=== PATIENT | male | born 1980 | race Caucasian/White ===

== ENCOUNTER 2018-05-27 07:12 | Day surgery (SDC) | payer BC ==
[2018-05-27] MEDS ORDERED: Ondansetron 4 MG/2 ML SDV IVPUSH ONE (07:13)
[2018-05-27] MEDS ORDERED: Lactated Ringers 1,000 ML IV ONE (07:13)
[2018-05-27] MEDS ORDERED: Propofol 200 MG/20 ML SDV IV ONE (07:13)
[2018-05-27] MEDS ORDERED: fentaNYL 100 MCG/2 ML SDV IV ONE (07:13)
[2018-05-27] MEDS ORDERED: Dexamethasone 4 MG/ML 5 ML MDV IVPUSH ONE (07:13)
[2018-05-27] MEDS ORDERED: Midazolam 1 MG/ML 2 ML SDV IV ONE (07:13)
[2018-05-27] MEDS ORDERED: Ketorolac 30 MG/ML SDV IVPUSH ONE (07:13)
[2018-05-27] MEDS ORDERED: Lidocaine 2% 100 MG/5 ML Syringe IVPUSH ONE (07:13)
[2018-05-27] MEDS ORDERED: Sodium Chloride 0.9% 10 ML Syringe FLUSH PRN (07:15)
[2018-05-27] MEDS ORDERED: Lactated Ringers 1,000 ML IV SCH (07:15)
[2018-05-27] MEDS ORDERED: Sodium Chloride 0.9% 1,000 ML IV SCH (07:57)
[2018-05-27] MEDS ORDERED: Piperacillin/Tazobactam 3.375 GM in Sodium Chloride 0.9% 50 ML IV SCH (08:00)
[2018-05-27] MEDS ORDERED: Lidocaine 1% 20 ML MDV ONE (09:05)
[2018-05-27] MEDS ORDERED: Bupivacaine 0.5% 30 ML SDV ONE (09:05)
--- NOTE | 2018-05-27 09:52 | PCM.OPNOTE ---
- General Post-Op/Procedure Note Date of Surgery/Procedure: 05/27/18 Operative Procedure(s): Right great toe amputation Findings: proximal phalange and ulcer of distal toe Pre Op Diagnosis: diabetic foot ulcer right great toe with osteomylitis Post-Op Diagnosis: Same Anesthesia Technique: General LMA, Local (7 ml 1 % lido and 0.5% buvipicaine) Primary Surgeon: Parth Fracno Anesthesia Provider: Sid Mcnulty Pathology: right great toe EBL in mLs: 3 Complications: None Condition: Good Free Text/Narrative:: see dictation
[2018-05-27] MEDS ORDERED: Acetaminophen/HYDROcodone 325-5 MG Tab PO ONE (09:59)
[2018-05-27 11:04] VITALS: BP 104/80
--- NOTE | 2018-05-27 11:19 | OR ---
DATE OF OPERATION: 05/27/2018 SURGEON: Parth Franco MD PROCEDURE PERFORMED: Amputation of the right great toe. PREOPERATIVE DIAGNOSIS: Osteomyelitis with chronic ulcer in a diabetic. POSTOPERATIVE DIAGNOSIS: Osteomyelitis with chronic ulcer in a diabetic. INDICATIONS FOR PROCEDURE: This is a 38-year-old white male who has had an amputation performed of his distal toe in the past due to an ulcer that developed because of his diabetes and chronic osteomyelitis. Recently, he has had an another ulcer developed at the tip of his amputation stump on his great toe. Subsequent workup has demonstrated osteomyelitis. He was offered and accepted amputation. DESCRIPTION OF OPERATION: After an excellent LMA anesthetic was administered, the patient was prepped and draped in usual sterile manner. 7 mL of 1:1 mixture of 1% lidocaine and 0.5% bupivacaine was used to perform a digital block. A racket incision was then performed with a #15 scalpel blade and tissue was cut down to bone. The tendons were transected and tension was placed on the tendon which was then pulled. This was then transected to allow the tendon to retract back into the area of the foot. The periosteal elevator was then used to elevate the periosteum and enter the intra-articular joint between the flange and the metatarsal. After transecting the joint capsule, the toe was then removed and passed off the field. The exposed cartilage was then roughed up with a rongeur. The area was irrigated. The subcu tissue was then approximated with interrupted 0 Vicryl and a combination of 2-0 nylon and 3-0 nylon was used to close the skin. Dressing was applied. The patient tolerated the procedure well and was taken to recovery in good condition. /[id number] /MODL
== END 2018-05-27 11:17 | disposition home or self-care (01) ==
LOC: FB.SDS 07:12
PROVIDERS: ATTEND Surgery
DX: M86.671 Other chronic osteomyelitis, right ankle and foot (principal); E11.621 Type 2 diabetes mellitus with foot ulcer; E66.01 Morbid (severe) obesity due to excess calories; Z79.4 Long term (current) use of insulin; Z88.1 Allergy status to other antibiotic agents; Z79.82 Long term (current) use of aspirin; Z68.41 Body mass index [BMI] 40.0-44.9, adult; Z79.899 Other long term (current) drug therapy; Z79.52 Long term (current) use of systemic steroids
CPT/HCPCS: 28810; 82962; A9270; J1100; J1885; J2001; J2250; J2405; J2543; J2704; J3010; J3490; J7030; J7050; J7120

== ENCOUNTER 2019-01-07 21:39 | Emergency (ER) | payer SELFPAY ==
[2019-01-07] MEDS ORDERED: Lidocaine 1% with EPINEPHrine 1:100,000 10 ML MDV INJECT ONE (21:40)
[2019-01-07] MEDS: Diphtheria,Pertussis(Acell),Tetanus Vaccine 0.5 ML SDV IM ONE (22:52)
[2019-01-07] MEDS: Doxycycline 100 MG Tab PO ONE (22:52)
--- NOTE | 2019-01-07 23:04 | EDM.PDOC ---
ED HPI GENERAL MEDICAL PROBLEM - General Chief Complaint: Lower Extremity Injury/Pain Stated Complaint: TOE Time Seen by Provider: 01/07/19 21:57 Source of Information: Reports: Patient History Limitations: Reports: No Limitations - History of Present Illness INITIAL COMMENTS - FREE TEXT/NARRATIVE: states he got up and put the right foot down and felt sudden pain in the right toe: at the base of the 2nd toe ( 1st toe is amputated). Then noted sudden onset of bleeding from the affected area at the base of the toe . then decide to come in to be seen Onset: Today Onset Date: 01/07/19 Onset Time: 19:30 Duration: Constant Location: Reports: Lower Extremity, Right Quality: Reports: Ache Severity: Mild Improves with: Reports: Rest Worsens with: Reports: Movement Context: Reports: Activity R foot Pain Score (Numeric/FACES): 8 - Related Data Allergies Allergy/AdvReac Type Severity Reaction Status Date / Time sulfamethoxazole Allergy Rash Verified 01/07/19 21:50 [From Bactrim] trimethoprim [From Bactrim] Allergy Rash Verified 01/07/19 21:50 Home Meds: Home Meds Doxycycline Hyclate 100 mg PO BID #20 capsule 01/07/19 [Rx] Mupirocin Cream [Bactroban Crm] 30 gm .XX BID #3 tube 01/07/19 [Rx] Past Medical History - Past Health History Medical/Surgical History: Denies Medical/Surgical History HEENT History: Reports: Impaired Vision, Other (See Below) Other HEENT History: wears glasses Cardiovascular History: Reports: High Cholesterol Respiratory History: Reports: None Gastrointestinal History: Reports: Colon Polyp Genitourinary History: Reports: Other (See Below) Other Genitourinary History: PENILE LESION Musculoskeletal History: Reports: Fracture Other Musculoskeletal History: hx fx L 4 & 5th fingers Neurological History: Reports: Neuropathy, Diabetic Psychiatric History: Reports: Anxiety, Depression, Developmental Delay, Learning Disability Endocrine/Metabolic History: Reports: Diabetes, Type II, IDDM, Obesity/BMI 30+ Hematologic History: Reports: None Immunologic History: Reports: None Oncologic (Cancer) History: Reports: None - Infectious Disease History Infectious Disease History: Reports: Chicken Pox, MRSA Other Infectious Disease History: hx MRSA IN [place] - Past Surgical History Head Surgeries/Procedures: Reports: None HEENT Surgical History: Reports: Oral Surgery Cardiovascular Surgical History: Reports: None Respiratory Surgical History: Reports: None GI Surgical History: Reports: Appendectomy, Cholecystectomy, Colon, Colonoscopy , Hernia, Abdominal, Hernia, Inguinal, Polypectomy Male Surgical History: Reports: Vasectomy Endocrine Surgical History: Reports: None Neurological Surgical History: Reports: None Musculoskeletal Surgical History: Reports: Amputation, Other (See Below) Other Musculoskeletal Surgeries/Procedures:: RIGHT GREAT TOE PARTIAL AMPUTATION Oncologic Surgical History: Reports: None Social & Family History - Family History Family Medical History: Noncontributory Cardiac: Reports: High Cholesterol, Hypertension, [place], Prior Cardiac Arrest : Reports: Diabetic Nephropathy OBGYN: Reports: Recurrent Spontaneous Musculoskeletal: Reports: Gout Psychiatric: Reports: None Endocrine/Metabolic: Reports: Diabetes, Type I, Obesity/MBI 30+ Hematologic: Reports: None Immunologic: Reports: None Dermatologic: Reports: None Oncologic: Reports: None - Tobacco Use Smoking Status *Q: Former Smoker Years of Tobacco use: 25 Used Tobacco, but Quit: Yes Month/Year Tobacco Last Used: 2016 - Caffeine Use Caffeine Use: Reports: Coffee, Energy Drinks - Recreational Drug Use Recreational Drug Use: No Review of Systems - Review of Systems Review Of Systems: See Below Constitutional: Reports: No Symptoms Eyes: Reports: No Symptoms Ears: Reports: No Symptoms Nose: Reports: No Symptoms Mouth/Throat: Reports: No Symptoms Skin: Reports: Wound (laceration : spontaneous on the base of toe with a bleed) Neurological: Reports: Paresthesia ED EXAM, GENERAL - Physical Exam Exam: See Below Free Text/Narrative:: exam od right foot:; 1st toe amputated. 2nd toe is a hammer toe, in the flexed part of the hammer toe is a deep laceration abut 2 cm long , bleeding Exam Limited By: No Limitations General Appearance: Alert, WD/WN, No Apparent Distress Eye Exam: Bilateral Eye: EOMI Ears: Normal External Exam Nose: Normal Inspection Head: Atraumatic Neck: Supple Peripheral Pulses: 0: Posterior Tibial (L), 1+: Dorsalis Pedis (L), Dorsalis Pedis (R) Extremities: Joint Swelling (2nd toe with linear laceration on the flexed distal phalanx) ED TRAUMA EXTREMITY PROCEDURES - Laceration/Wound Repair Right Toe - Second Lac/Wound Length In cm: 2 (plantar surface) Appearance: Superficial Distal NVT: Other (neuropathy) Anesthetic Type: Digital Local Anesthesia - Lidocaine (Xylocaine): 1% with EPI Local Anesthetic Volume: 2cc Skin Prep: Saline Saline Irrigation (cc's): 3 Exploration/Debridement/Repair: In a Bloodless Field Closed With: Sutures Suture Size: 4-0 # of Sutures: 5 Suture Type: Prolene, Interrupted Course - Vital Signs Last Recorded V/S: Last Vital Signs Temp 36.6 C 01/07/19 21:45 Pulse 86 01/07/19 21:45 Resp 18 01/07/19 21:45 BP 152/82 H 01/07/19 21:45 Pulse Ox 99 01/07/19 21:45 - Orders/Labs/Meds Orders: Active Orders 24 hr Category Date Time Status Vaccines to be Administered [RC] PER UNIT ROUTINE Care 01/07/19 22:47 Ordered Meds: Medications Discontinued Medications Generic Name Dose Route Start Last Admin Trade Name Freq PRN Reason Stop Dose Admin Diphtheria/Tetanus/Acell Pertussis 0.5 ml 01/07/19 22:47 Adacel IM 01/07/19 22:48 .ONCE ONE Doxycycline Hyclate 200 mg 01/07/19 22:47 01/07/19 22:52 Vibra-Tabs PO 01/07/19 22:48 200 mg ONETIME ONE Administration Departure - Departure Time of Disposition: 23:05 Disposition: Home, Self-Care 01 Clinical Impression: Laceration of toe of right foot with complication - Discharge Information *PRESCRIPTION DRUG MONITORING PROGRAM REVIEWED*: Not Applicable *COPY OF PRESCRIPTION DRUG MONITORING REPORT IN PATIENT NAI: Not Applicable Prescriptions: Doxycycline Hyclate 100 mg PO BID #20 capsule Mupirocin Cream [Bactroban Crm] 30 gm .XX BID #3 tube Instructions: Doxycycline tablets or capsules, Laceration Care, Adult, Easy-to- Read Referrals: Ta Reed MD [Primary Care Provider] - Forms: ED Department Discharge Additional Instructions: 1) Off work for 3 days : to aid wound healing 2) Keep wound clean and dry: elevate foot as often as possible 3) Apply thin film of natural honey to wound daily or antibiotic cream as prescribed 4) Monitor for infection : swelling redness, pain , pus discharge 5) Call with any concerns 6) Suture removal in 10 days - Problem List & Annotations (1) Toe infection SNOMED Code(s): 787464059 Code(s): L08.9 - LOCAL INFECTION OF THE SKIN AND SUBCUTANEOUS TISSUE, UNSP Status: Acute Current Visit: Yes (2) Laceration of toe of right foot with complication SNOMED Code(s): 82441177 Code(s): S91.119A - LACERATION W/O FB OF UNSP TOE W/O DAMAGE TO NAIL, INIT Status: Acute Current Visit: Yes - Problem List Review Problem List Initiated/Reviewed/Updated: Yes - My Orders Last 24 Hours: My Active Orders 01/07/19 22:47 Vaccines to be Administered [RC] PER UNIT ROUTINE - Assessment/Plan Last 24 Hours: My Active Orders 01/07/19 22:47 Vaccines to be Administered [RC] PER UNIT ROUTINE Plan: sutures removal in 10 days
[2019-01-08 00:03] VITALS: BP 147/101; PULSE 88
== END 2019-01-07 23:14 | disposition home or self-care (01) ==
LOC: FB.ED 21:39
DX: S91.114A Laceration without foreign body of right lesser toe(s) without damage to nail, initial encounter (principal); L08.9 Local infection of the skin and subcutaneous tissue, unspecified; Z88.2 Allergy status to sulfonamides; Z88.1 Allergy status to other antibiotic agents; Z87.891 Personal history of nicotine dependence; X58.XXXA Exposure to other specified factors, initial encounter
CPT/HCPCS: 12001; 12011; 12013; 90471; 90715; 99282; A9270-GY

== ENCOUNTER 2020-01-13 08:43 | Day surgery (SDC) | payer BC ==
[2020-01-13] MEDS ORDERED: Ondansetron 4 MG/2 ML SDV IVPUSH ONE (08:44)
[2020-01-13] MEDS ORDERED: Midazolam 1 MG/ML 2 ML SDV IV ONE (08:44)
[2020-01-13] MEDS ORDERED: Lidocaine 1% PF 2 ML SDV IV ONE (08:44)
[2020-01-13] MEDS ORDERED: fentaNYL 100 MCG/2 ML SDV IV ONE (08:44)
[2020-01-13] MEDS ORDERED: Propofol 200 MG/20 ML SDV IV ONE (08:44)
[2020-01-13] MEDS ORDERED: Lactated Ringers 1,000 ML IV SCH (09:00)
[2020-01-13] MEDS ORDERED: Sodium Chloride 0.9% 10 ML Syringe FLUSH PRN (09:00)
[2020-01-13] MEDS ORDERED: Bupivacaine 0.5% 30 ML SDV INJECT ONE (12:11)
[2020-01-13] MEDS ORDERED: Lidocaine 2% 20 ML MDV INJECT ONE (12:11)
--- NOTE | 2020-01-13 12:55 | PCM.OPNOTE ---
- General Post-Op/Procedure Note Date of Surgery/Procedure: 01/13/20 Operative Procedure(s): amputation 2nd right toe Findings: ulcer at tip of toe able to probe to bone mild erythema over distal phalange. Pre Op Diagnosis: toe ulcer and osteomylites right second toe Post-Op Diagnosis: Same Anesthesia Technique: Local (2 % lido with 0.5% buvipicaine), MAC Primary Surgeon: Parth Franco Anesthesia Provider: Sid Mcnulty Pathology: right second toe EBL in mLs: 1 Complications: None Condition: Good Free Text/Narrative:: see dictation [id number]
[2020-01-13 13:56] VITALS: BP 130/91; PULSE 79
--- NOTE | 2020-01-14 11:35 | OR ---
DATE OF OPERATION: 01/13/2020 SURGEON: Parth Franco MD PROCEDURE PERFORMED: Amputation of the right 2nd toe. PREOPERATIVE DIAGNOSIS: Diabetic foot ulcer of the toe with underlying osteomyelitis. POSTOPERATIVE DIAGNOSIS: Diabetic foot ulcer of the toe with underlying osteomyelitis. INDICATIONS FOR PROCEDURE: This is a 39-year-old white male who has had issues with ulcerations of the toes on both sides. He is status post amputation of the right great toe. Recently, he developed an ulceration on the tip of the toe which has not responded to medical management. We were able to probe to the bone at the base of the ulcer. He has been very poor in terms of responding to oral antibiotics. The patient initially wanted to be very aggressive in an attempt to save the toe; however, yesterday, presented to the clinic and expressed a desire for amputation. Given the fact that the infection has persisted despite oral antibiotics, he was offered and accepted amputation. INTRAOPERATIVE FINDINGS: Mild erythema was noted over the distal flange at the tip of the right toe. There is a 5 mm ulcer with granulation tissue, but we are unable to probe down to the bone. The toe also has a hammertoe in appearance. DESCRIPTION OF PROCEDURE: After an excellent IV sedation was administered, the patient's foot was prepped and draped in the usual sterile manner. 8 mL of a 1:1 mixture of 2% lidocaine and 0.5% bupivacaine was used to create a digital block as well as deep injection along the flange down to the level of the metatarsal head. A vertical fish-lip incision was then made. The underlying soft tissue was divided using electrocautery. A periosteal elevator was then used to raise the periosteum along the bone, and the bone was then transected at the base near the metatarsal head. Bleeding was controlled with a figure-of- eight 3-0 Vicryl as well as judicious use of electrocautery. The bone was rongeured back with a pair of rongeurs to get a nice, smooth surface. The area was then irrigated. The soft tissue was approximated with a running 3-0 Vicryl, and interrupted 3-0 nylon was used to approximate the skin. Dressing was applied. Needle, sponge, and instrument count was reported as correct. The patient tolerated the procedure well and was taken to Recovery in good condition. He will be issued an open toe shoe as well as crutches and follow up in my office on Saturday for a dressing change. /[id number] /NATALIO
== END 2020-01-13 13:45 | disposition home or self-care (01) ==
LOC: FB.SDS 08:43
PROVIDERS: ATTEND Surgery
DX: M86.671 Other chronic osteomyelitis, right ankle and foot (principal); B35.1 Tinea unguium; E11.69 Type 2 diabetes mellitus with other specified complication; E11.621 Type 2 diabetes mellitus with foot ulcer; L97.519 Non-pressure chronic ulcer of other part of right foot with unspecified severity; Z01.812 Encounter for preprocedural laboratory examination; Z20.828 Contact with and (suspected) exposure to other viral communicable diseases; Z79.899 Other long term (current) drug therapy; Z88.2 Allergy status to sulfonamides; E66.01 Morbid (severe) obesity due to excess calories; Z89.411 Acquired absence of right great toe; Z68.38 Body mass index [BMI] 38.0-38.9, adult
CPT/HCPCS: 01480-QZ; 82962; 88305; 88311; J2001; J2250; J2405; J2704; J3010; J3490; J7120; U0002